=== PATIENT | male | born 1975 | race Caucasian/White ===

== ENCOUNTER 2020-02-03 19:07 | Emergency (ER) | payer OTHER, SELFPAY ==
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
[2020-02-03 19:09] VITALS: BP 127/93; PULSE 90; RESP 15; TEMP 37.2; O2SAT 95
[2020-02-03 19:30] VITALS: BP 132/87; PULSE 85; RESP 16; O2SAT 94
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
[2020-02-03] MEDS: IBUPROFEN 400 MG TABLET 800 MG PO (20:34)
[2020-02-03 21:06] VITALS: BP 153/93; PULSE 83; RESP 18; O2SAT 94
== END 2020-02-03 20:51 | disposition home or self-care (01) ==
PROVIDERS: Emergency Provider Emergency Medicine; PCP Internal Medicine
DX: R51 Headache (principal); M19.012 Primary osteoarthritis, left shoulder; M54.2 Cervicalgia; M47.812 Spondylosis without myelopathy or radiculopathy, cervical region; V53.5XXA Driver of pick-up truck or van injured in collision with car, pick-up truck or van in traffic accident, initial encounter; F17.200 Nicotine dependence, unspecified, uncomplicated
CPT/HCPCS: 70450; 72125; 73030; 99284; A9270